=== PATIENT | female | born 1955 | race Caucasian/White ===

== ENCOUNTER 2016-11-04 11:52 | Emergency (ER) | payer OTHER ==
--- NOTE | ~2016-11-04 | ER ---
PATIENT'S NAME: VIDA WHYTE [facility] AGE: 60 Y [address] ROOM: [place] [id number] LOCATION: [facility] ADMIT DATE: 11/04/2016 ER/Outpatient Report DISCHARGE DATE: 11/04/2016 FAMILY PHYSICIAN: Physician, Unknown ATTENDING PHYSICIAN: Candi Diaz Time of Patient's Arrival: 1152 hours. Time of Patient's Evaluation: 1220 hours. CHIEF COMPLAINT: Abdominal pain. HISTORY OF PRESENT ILLNESS: This is a 60-year-old female who presents to the ER. She states she woke up with lower abdominal pain around 5 o'clock this morning. She states that it was urgent and cramp-like pain. She did have a small pencil-sized bowel movement at that time. She states that she then felt like she could not pass any gas or pass any stool anymore, but then around 8 o'clock this morning, she had another small pencil-sized bowel movement. She states then her abdominal pain worsened. She states that she felt like her lower abdomen was going to "blow apart." She states that since that time she has not passed any gas. She feels very nauseated. She felt like she was going to throw up, but has not. She has not noticed any blood in her stool. She has had no troubles with urination. She states when her pain is at its worst she rates it at 10/10 pain and a cramping type pain. She did have some chills at home. No fevers that she knows of, and she has nothing to eat or drink today. She states that she has never had anything like this before. ALLERGIES: PLEASE SEE MEDICATION LIST. MEDICATIONS: Please see medication list. PAST MEDICAL HISTORY: Acid reflux. PAST SURGERIES: Malignant melanoma on her left upper arm, which was removed on october 13 and she has had a cholecystectomy. SOCIAL HISTORY: She denies smoking, drug, or alcohol use. REVIEW OF SYSTEMS: PATIENT'S NAME: VIDA WHYTE [facility] AGE: 60 Y [address] ROOM: [place] [id number] LOCATION: [facility] ADMIT DATE: 11/04/2016 ER/Outpatient Report DISCHARGE DATE: 11/04/2016 FAMILY PHYSICIAN: Physician, Unknown ATTENDING PHYSICIAN: Candi Diaz All systems are reviewed and are negative with the exception of those discussed in the HPI. PHYSICAL EXAMINATION: VITAL SIGNS: Weight 106.9 kg taken, blood pressure is 145/86, pulse 65, respirations 20, temperature 97.4 degrees tympanically, and saturations 97% on room air. [place] Coma Score is 15. GENERAL: Alert, obese female, in mild distress. HEENT: Head: Normocephalic. Eyes: Pupils are equal and reactive to light. She does display moist mucous membranes. LUNGS: Clear to auscultation bilaterally. HEART: Regular rate and rhythm. ABDOMEN: Obese. It is mildly tender in all 4 quadrants with palpation. No guarding. No rebound tenderness. She has hyperactive bowel sounds throughout. EXTREMITIES: No clubbing, cyanosis, or edema. Has full range of motion of all limbs. LABORATORY DATA: CBC: White count is 13.2, hemoglobin is 13.6, platelets 260, and ANC is 11.1. Sodium is 140, potassium is 4.3, otherwise unremarkable. Amylase 32, lipase 91. Urinalysis is negative for any infection, no blood in her urine. CT scan was done with IV contrast and was negative and reported by Radiology. IMPRESSION: Abdominal pain. ASSESSMENT AND PLAN: We did monitor the patient here in the ER. We did start an IV and did give her some IV fluids. I did order some fentanyl and some Zofran if her pain was to return or if she was to have any nausea as well. The patient rested comfortably. She did ultimately end up having a large diarrhea bowel movement and her abdominal pain did go away after that. We will dismiss the patient home. She needs to monitor her symptoms closely. Advised her to continue to push fluids, monitor her symptoms closely, and follow up with her primary care physician for followup care if needed. The patient understands and agrees with care. BABITA WILHELM PA-C FOR MD SOHEILA RAZO/keke PATIENT'S NAME: VIDA WHYTE [facility] AGE: 60 Y [address] ROOM: [place], [place] [id number] LOCATION: [facility] ADMIT DATE: 11/04/2016 ER/Outpatient Report DISCHARGE DATE: 11/04/2016 FAMILY PHYSICIAN: Brad Nuñez ATTENDING PHYSICIAN: Candi Diaz /[id number] d: t: 11/13/16 1223, OUTPATIENT REPORT
[2016-11-04 12:54] LABS: BASOPHIL # 0.1 K/uL (0.0-0.2); BASOPHIL % 0.4 %; EOSINOPHIL % 0.3 %; HEMATOCRIT 42.8 % (33.0-46.0); HEMOGLOBIN 13.6 g/dL (10.0-15.0); IMMATURE GRANULOCYTE # 0.1 K/uL (0.0-0.3); IMMATURE GRANULOCYTE % 0.4 %; LYMPHOCYTE # 1.4 K/uL (0.8-4.0); LYMPHOCYTE % 10.7 %; MCH 27.7 pg (27.0-34.0); MCHC 31.8 gm/dL (32.0-36.5); MCV 87.2 fl (83.0-98.0); MONOCYTE # 0.5 K/uL (0.0-1.0); MONOCYTE % 3.9 %; MPV 11.3 fl (9.4-12.4); NEUTROPHIL # (ANC) 11.1 K/uL (1.8-7.8); NEUTROPHIL % 84.3 %; NRBC % 0 /100WBC (0-0.00); PLATELET COUNT 216 K/uL (150-450); RBC 4.91 M/uL (3.50-5.50); RDW-CV 13.7 % (11.9-14.6); WBC 13.2 K/uL (4.0-11.0)
[2016-11-04 13:36] LABS: ALBUMIN 3.7 gm/dL (3.5-5.0); ALK PHOS 92 IU/L (33-138); ALT 42 IU/L (12-78); ANION GAP 15.3 (10.0-19.0); AST 18 IU/L (10-40); BLOOD UREA NITROGEN 12 mg/dL (6-24); CHLORIDE 107 mMol/L (96-110); CO2 22 mMol/L (22-32); CREATININE 0.7 mg/dL (0.5-1.1); ESTIMATED GFR (MDRD EQUATION) > 60; POTASSIUM 4.3 mMol/L (3.7-5.1); SODIUM 140 mMol/L (135-145); TOTAL BILIRUBIN 0.4 mg/dL (0.0-1.5); TOTAL PROTEIN 7.4 g/dL (6.0-8.4)
[2016-11-04 13:50] LABS: BILIRUBIN URINE NEGATIVE (NEGATIVE); BLOOD URINE NEGATIVE /UL (NEGATIVE); GLUCOSE URINE NEGATIVE (NEGATIVE); KETONE URINE NEGATIVE (NEGATIVE); LEUKOCYTES URINE 100 /UL (NEGATIVE); NITRITE URINE NEGATIVE (NEGATIVE); PROTEIN URINE NEGATIVE (NEGATIVE); SPEC GRAVITY URINE 1.015 (1.003-1.035); UROBILINOGEN URINE NORMAL (NORMAL)
[2016-11-04 13:57] LABS: COLOR URINE YELLOW (YELLOW); TURBIDITY URINE CLEAR (CLEAR)
[2016-11-04 13:58] LABS: RBC URINE 0-2 #/HPF (NEGATIVE); WBC URINE 0-2 #/HPF (NEGATIVE)
[2016-11-04 13:59] LABS: BACTERIA URINE RARE (NEGATIVE)
== END 2016-11-04 14:25 | disposition disaster alternative care site (69) ==
LOC: GMED 11:52
PROVIDERS: Physician Assistant Medical
DX: R10.30 Lower abdominal pain, unspecified (principal); K21.9 Gastro-esophageal reflux disease without esophagitis; Z90.49 Acquired absence of other specified parts of digestive tract; Z98.890 Other specified postprocedural states; Z85.820 Personal history of malignant melanoma of skin; Z88.8 Allergy status to other drugs, medicaments and biological substances; Z88.0 Allergy status to penicillin; Z79.899 Other long term (current) drug therapy
CPT/HCPCS: J2405; J7030; Q9967